=== PATIENT | male | born 1930 | race Caucasian/White ===

== ENCOUNTER 2017-08-03 14:45 | Inpatient (IN) ==
--- OUTSIDE RECORDS SUMMARY | 2017-08-03 14:54 | External Medical Summary ---
:1930 Author Organization [facility]. Summary purpose CCDA Sent to [facility] Chief Complaint and Reason for Visit Admit Diagnosis 1 hip pain Problem list No authorized problems tracked for continuity of care are available for this visit. Encounters No authorized problems tracked for encounter diagnoses are available for this visit. Medications No medications recorded for this patient visit Allergies, adverse reactions, alerts Allergen Category Ingredient Status Reaction Severity Onset glimepiride Drug glimepiride Active No Known Food No Known Food No Known Food Active Allergy Allergy Allergy Immunizations No immunizations recorded for this patient visit Relevant diagnostic tests and/or laboratory data No authorized results are available for this patient visit History of procedures No procedures recorded for this patient visit. Functional status No functional or cognitive status observations are available for this visit. Vital signs No authorized vital signs are available for this visit. Social history No Social History or smoking status observations were recorded for this visit. ( Unknown if ever smoked.) Treatment Plan No treatment plan text is available for this visit. Hospital discharge instructions No discharge instruction text is available for this visit.
[2017-08-03] MEDS ORDERED: TRAMADOL 50 MG TABLET PO PRN (14:57)
[2017-08-03] MEDS ORDERED: ACETAMINOPHEN 500 MG TABLET PO PRN (14:57)
[2017-08-03] MEDS ORDERED: BISACODYL 10 MG SUPPOSITORY RECTALLY PRN (14:57)
--- NOTE | 2017-08-03 15:17 | IRU History & Physical Report ---
HPI U Date: Date: 08/03/17 Time: 1509 Chief complaint: My hip hurts HPI: Mr. Danielle is an 87-year-old male who is referred by Dr. Danny Carney. His primary care physician is Dr. Delia De Leon. He reports that he was stepping out of his car which is SUV on 07/30/2017. He missed the runner board and thought the ground was higher. As soon as his foot hit the ground he felt discomfort in the left hip. He did fall to the ground but did not have any known head injury at that time. He states that he recalls almost the entire event and does not believe that he had any loss of consciousness. He went to the emergency department in [place]. Initial x-ray was negative. He continued to have discomfort in the hip and for that reason on the morning of since the pain was worse he had a CT scan of the hip performed demonstrating a fracture. He was transferred to [facility] for admission on 07/31/2017 to the hospitalist service and the care of Dr. Carney. He was seen by Dr. Guthrie. The CT scan demonstrated a nondisplaced left femoral neck fracture. Patient was stabilized medically and was taken to surgery by Dr. Guthrie on 07/31/2017 for a cannulated screw fixation of the left femoral neck fracture. He tolerated the procedure well. Prior to this episode, the patient was independent functionally. He lives at home with his in [place]. They live in their own home. He has 2 steps to get into his home. He has a walker at home which his was used in the past but he does not use any assistive devices. Interestingly, the patient states that he has fallen numerous times but has never hurt himself. Since the surgery he has had increasing oxygen requirements. The patient does have history of chronic objective pulmonary disease. He uses his albuterol nebulizer daily from fall through winter and then stopped using it in the spring and summer. He uses oxygen at home at the rate of 2 L/m when he is in the house. He does have chronic dyspnea with activity. He denies any cough nor sputum. He denies any chest pain. Since the surgery he has had oxygen saturations as low as 60% with activity. He is able to oxygenate adequately otherwise when he is at rest. In addition, the initial chest x-ray was negative for acute process. Follow-up film has shown some airspace density in the right lower lobe. Etiology of this is not clear. The patient also has history of diabetes mellitus. He has been on oral agents only. He knows one of them is metformin but does not know the name of the other one. He checks his sugars 4 times daily. Average fasting blood sugar is around 79. Last known A1c was 7.2% in June. Patient does have history of cardiac workup in the past. As early as I can determine, this was precipitated by a TIA which was characterized by some left- sided weakness lasting for less than 24 hours. He was evaluated and was felt by Dr. Chatman. Mention is made of atrial fibrillation in the chart although the patient does not recognize this term. He states he has never been on warfarin nor any blood thinners. He was found to have carotid artery stenosis on the right and underwent endarterectomy about 4 or [address] Atkinson. Has had no further neurologic symptoms since that time. According to the hospital record , echocardiogram in 2008 demonstrated ejection fraction of 71%. Had trace tricuspid regurgitation. He did have a nuclear stress test in 2009 apparently demonstrating no acute findings. Patient's prior level of functioning is as follows: He was independent in all aspects tested. Patient's current level of functioning is as follows: Eating is supervision level. He requires maximum assistance for grooming, moderate assistance for upper body dressing and total assistance for lower body dressing. He requires maximum assistance for toileting, minimum assistance for bed/chair/wheelchair transfers and toilet transfers. He requires total assistance for walking with a rolling walker 12 feet. He does demonstrate poor safety and balance with functional transfers and ambulation. He did demonstrate one minor loss of balance requiring minimal assistance from therapist for correction. The following medical conditions are noted and require active monitoring and/or management: 1. Hypoxemia and history of COPD. He does use oxygen at home but is requirements appear to be greater here. He is at risk for further hypoxemia. His chest radiograph is abnormal demonstrating some right lower lobe airspace density of uncertain cause. This will be monitored carefully. 2. History of atrial fibrillation. He has had some tachycardia here and recently required some diltiazem. He was recently started on digoxin. He is at risk for further cardiac arrhythmias, lightheadedness etc. 3. Diabetes mellitus type II on oral agents only. He is at risk for hyperglycemia or hypoglycemia in view of the increased work demands involved with rehabilitation. The following therapies will be needed: 1. Physical therapy: for transfers and ambulation and stairs. 2. Occupational therapy: for ADL's and transfers. 3. Dietitian: In view of his diabetes mellitus 4. Medical management: for the above conditions. 5. 24 hour Rehabilitation Nursing to monitor and address the following: Close monitoring of blood sugars, assessment of wound progress to ensure no evidence of wound infection, monitoring of oxygen saturations and to reduce fall risk. [facility] Patient Stated Medical History 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 ago TIA) Cataracts Yes: bilateral removed/has lens Hearing Loss Yes Macular Degeneration Yes: bilateral Cardiac Arrhythmia Yes: history of tachycardia-previously on med for this Chronic Obstructive Pulmonary Yes: SOB, 02 at home, RT to assess and give Disease (COPD) treatment Sleep Apnea No Diabetes Mellitus Type 2 Yes: avg bs at home 110, bs today 112 Other Yes: prostate cancer/biopsies Other Musculoskeletal Yes: TIA 5 yrs ago, right sided weakness, left carotid endardectomy Medical History Updates: He reports history of prostate biopsy and is unclear if this demonstrated cancer. At one he stated it did but other information in the chart indicates that it was a benign biopsy. He states that he was reassessed every 3 months for a while but no treatment was given. Has seen Dr. Jim for this in the past. Surgical History: EGD in 1989. Echo 2008: EF 71%, trace tricuspid regurgitation. Nuclear stress test 2008: EF 65%, negative for MD. Right CEA 2013, Dr. Atkinson. Prostate biopsy 2001 (benign). Hernia repair x 2 (umbilical and left inguinal), 1998 Family History: Patient's parents are both . Father of a stroke at age 73. Mother also had of CVA age 69. He has lost 3 siblings from malignancy, thyroid cervical and prostate cancer. Another brother has prostate cancer. Another brother at a young age. - Social History Smoking status: Former smoker Packs per day: 0.5 (smoked from age 19 through age 62) Substance use type: does not use Alcohol intake: former (direct occasional beer in the past.) Alcohol intake frequency: does not drink Housing: house Household members: spouse Current occupational status: retired Current residence: Apartment/Private Home Social history: The patient is a retired redd. He lives with his in their own home. He was functionally independent prior to his fall. Review of Systems - Constitutional Constitutional: Absent: anorexia, chills, fatigue, fever(s), headache(s), lethargy, malaise, night sweats, weakness, weight gain, weight loss - EENMT Eyes: Absent: blurry vision, change in vision, diplopia Mouth/Throat: Absent: changes in swallowing, painful swallowing, change in taste , bleeding gums, change in voice - Cardiovascular Cardiovascular: Absent: chest pain, palpitations, syncope, dyspnea on exertion, orthopnea, edema, cyanosis, heart murmur Rhythm: Present: regular rhythm Vascular: Absent: intermittent claudication, pedal edema, unilateral swelling - Respiratory Respiratory: Absent: cough, dyspnea, hemoptysis, dyspnea on exertion, wheezing, pain on inspiration, chest congestion, excessive phlegm production - Gastrointestinal Gastrointestinal: Absent: abdominal pain, change in bowel habits, constipation, diarrhea, dyspepsia, dysphagia, early satiety, hematochezia, melena, nausea, vomiting - Musculoskeletal Musculoskeletal: Present: myalgias. Absent: abnormal gait, arthralgias, back pain, joint swelling, limited range of motion, muscle weakness - Integumentary/Breasts Integumentary: Absent: alopecia, erythema, lesions, pruritus, rash, jaundice - Neurological Neurological: Absent: abnormal gait, abnormal movements, abnormal speech, confusion, convulsions, dizziness, focal weakness, frequent falls, headache(s), loss of vision, memory loss, numbness, paresthesias, tremor(s) - Psychiatric Psychiatric: Absent: abnormal sleep pattern, anxiety, depression - Endocrine Endocrine: Absent: cold intolerance, flushing, heat intolerance, palpitations - Hematologic/Lymphatic Hematologic/Lymphatic: Absent: easy bleeding, easy bruising, lymphadenopathy - Allergic/Immunologic Allergic/Immunologic: Absent: urticaria Medications Home Medications Medication Instructions Recorded Confirmed Type Advair 500-50Diskus 2 inhaler PO DAILY 07/31/17 07/31/17 History Albuterol HFA Inhaler [Ventolin 2 inhaler PO PRN PRN 07/31/17 07/31/17 History Hfa 90 mcg/actuation] Albuterol/Ipratropium [Duoneb] 1 unit AEROSOL Q4H PRN 07/31/17 07/31/17 History Atorvastatin [Lipitor] 1 tab PO HS 07/31/17 07/31/17 History GlipiZIDE [Glucotrol] 1 tab PO DAILY 07/31/17 07/31/17 History Metformin [Glucophage] 500 mg PO BIDWM 07/31/17 07/31/17 History Multivitamin [One Daily] 1 tab PO DAILY 07/31/17 07/31/17 History Vit A/C/E AC/Znox/Cupric Oxide 1 tab PO DAILY 07/31/17 07/31/17 History [Eye Vitamin-Minerals Tablet] dilTIAZem HCl [Diltiazem 24Hr ER] 1 tab PO DAILY 07/31/17 07/31/17 History Allergies Allergy/AdvReac Type Severity Reaction Status Date / Time No Known Drug Allergies Allergy Verified 08/03/17 15:03 Results IRU - Labs Labs: Have reviewed chart information including review of chest radiograph from acute care. Exam - Constitutional Present: no acute distress, well nourished, well developed, average body habitus , cooperative Comments: Hard of hearing - Routine HEENT Exam Head: Present: normocephalic, atraumatic. Absent: cushingoid faces, abrasion, laceration, hematoma Eye: Present: EOMI, PERRL. Absent: conjunctival icterus, scleral injection, periorbital swelling, nystagmus ENT: Present: mucous membranes moist, oropharynx clear Comments: Pupils are small. Bilateral arcus senilis noted. Sclerae are clear. - Routine Neck Exam Present: supple, full ROM, trachea midline. Absent: lymphadenopathy, thyromegaly, tenderness, swelling - Routine Chest/Breast/Axilla Exam Chest wall: Absent: tenderness, mass Axillae: Absent: lymphadenopathy, mass - Routine Respiratory Exam Present: decreased breath sounds, prolonged expiratory phase, wheezes (a few expiratory wheezes noted bilaterally.). Absent: accessory muscle use, rales, respiratory distress, rhonchi, stridor, crackles, distant breath sounds - Routine Cardiovascular Exam Present: RRR, S1, S2, no murmur. Absent: gallop, S3, S4, click, irregular rhythm - Routine Abdominal Exam Present: soft, normoactive bowel sounds, non distended, non tender. Absent: rebound, guarding, firm, rigid, organomegaly, mass, hernia, wound - Routine Extremities Exam Present: no edema, non tender, pulses intact, normal capillary refill. Absent: cyanosis, clubbing - Routine Back/Spine/Pelvis Exam Back/Spine: Present: full ROM. Absent: scoliosis, kyphosis - Routine Skin Exam Present: intact, dry, warm. Absent: cyanosis, erythema, pallor, mottling, petechiae, urticaria, lesions, jaundice - Routine Neurological Exam Present: alert, oriented X3, CN II-XII intact, moving all extremities, normal speech - Routine Psychiatric Exam Present: normal affect, normal thought process, cooperative, good insight, good judgment. Absent: depressed, anxious Sepsis Assessment - Evaluation Severe Sepsis: none seen IRU A/P (1) Fracture of femoral neck, left Qualifiers: Encounter type: initial encounter Fracture type: closed Qualified Code(s) : S72.002A - Fracture of unspecified part of neck of left femur, initial encounter for closed fracture Current visit: No Status: Acute Patient continues to experience significant pain upon first standing. He is status post repair of the hip fracture. (2) Tachycardia Current visit: Yes Status: Acute Patient episode of tachycardia requiring diltiazem while on acute care. Has a history of reported atrial fibrillation although he does not recall that term. Ejection fraction has been recorded as normal. (3) Diabetes mellitus type 2 in nonobese Current visit: Yes Status: Chronic Has a history of diabetes mellitus type 2 on oral agents only (without residential use of insulin). He is at risk for hyperglycemia or hypoglycemia in view of his variable energy expenditure requirements in rehabilitation. (4) 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 Qualified Code(s): J43.9 - Emphysema, unspecified Current visit: Yes Status: Chronic Patient does use a nebulizer with albuterol at home once daily. Currently does not have a cough or sputum but does have dyspnea with activity. In addition, his chest radiograph is abnormal, and this will require close monitoring to observe for development of pulmonary infection or worsening respiratory failure. (5) Acute on chronic respiratory failure with hypoxemia Current visit: Yes Status: Acute Patient does use oxygen at home. However his requirements are increased here with recent report of saturations down into the 60s and 70s even while on oxygen. He is at risk for further hypoxemic respiratory failure and will require close monitoring of his pulmonary status. (6) Status post-operative repair of closed fracture of left hip Current visit: Yes Status: Acute DVT Prophylaxis: SCD's, Lovenox Resuscitation Status: Full Code - Course Hospital Course: Carl Rowley MD: - Interventions to Obtain Goals PT Treatment Plan: Balance/Proprioception, Functional Activities, Gait Training , Patient/Family Education OT Treatment Plan: ADL (Basic Care), Balance Training, IADL, Pt./Family Education Goals Progress/Modifications: The patient will require a multidisciplinary approach with involvement of team members including occupational therapy, physical therapy, 24 hour rehabilitation nursing to monitor and treat hyperglycemia or hypoglycemia. He requires medical supervision of these areas as well. He does have acute on chronic hypoxemic respiratory failure as evidenced by increased oxygen demands compared to his baseline.
--- NOTE | 2017-08-03 15:34 | IRU 24Hr Post Admit Eval ---
24 Hr Post Admission Physical - Relevant Changes Relevant Changes: No Reviewed: I have reviewed the patient's information and concur with the finding and results of the pre-admission screen. Certification: I certify the patient for rehabilitation. - Patient Condition (1) Fracture of femoral neck, left Status: Acute Qualifiers: Encounter type: initial encounter Fracture type: closed Qualified Code(s) : S72.002A - Fracture of unspecified part of neck of left femur, initial encounter for closed fracture Code(s): S72.002A - Fracture of unspecified part of neck of left femur, initial encounter for closed fracture Classification: IRF Tx That Should Address Diagnosis, Diagnosis Requiring Medical Follow Up (2) Tachycardia Status: Acute Code(s): R00.0 - Tachycardia, unspecified Classification: IRF Tx That Should Address Diagnosis, Diagnosis Requiring Medical Follow Up (3) Diabetes mellitus type 2 in nonobese Status: Chronic Code(s): E11.9 - Type 2 diabetes mellitus without complications Classification: Present on IRF Admission, IRF Tx That Should Address Diagnosis, Diagnosis Requiring Medical Follow Up (4) COPD (chronic obstructive pulmonary disease) Status: Chronic Qualifiers: COPD type: emphysema Emphysema type: unspecified Qualified Code(s): J43.9 - Emphysema, unspecified Code(s): J44.9 - Chronic obstructive pulmonary disease, unspecified Classification: Present on IRF Admission, IRF Tx That Should Address Diagnosis, Diagnosis Requiring Medical Follow Up (5) Acute on chronic respiratory failure with hypoxemia Status: Acute Code(s): J96.21 - Acute and chronic respiratory failure with hypoxia Classification: Present on IRF Admission, IRF Tx That Should Address Diagnosis, Diagnosis Requiring Medical Follow Up (6) Status post-operative repair of closed fracture of left hip Status: Acute Code(s): Z98.890 - Other specified postprocedural states; Z87.81 - Personal history of (healed) traumatic fracture Classification: Present on IRF Admission, IRF Tx That Should Address Diagnosis, Diagnosis Requiring Medical Follow Up - Prior Functional Status Lives With: Spouse Residence Type: Apartment/Private Home Assitive Devices: None Prior Functional Status: Indep. at home or school - Current Functional Status Current Level of Function: Patient's current level of functioning is as follows: Eating is supervision level. He requires maximum assistance for grooming, moderate assistance for upper body dressing and total assistance for lower body dressing. He requires maximum assistance for toileting, minimum assistance for bed/chair/wheelchair transfers and toilet transfers. He requires total assistance for walking with a rolling walker 12 feet. He does demonstrate poor safety and balance with functional transfers and ambulation. He did demonstrate one minor loss of balance requiring minimal assistance from therapist for correction. Failed Alternative Therapy: Arrived from Acute Care Patient Requirements: The patient requires oversight by rehabilitation physician to manage their rehabilitation treatment plan and multidisciplinary approach to care that can only be provided in an IRF and requires a multidisciplinary approach to care, provided by professional PTs, OTs, STs, dieticians, RTs, rehabilitation nurses and is not available in lesser levels of care. Limitations Req: Mobility Impairment, ADL Impairment, Limited Mobility, Respiratory Impairment Physical Therapy Minutes: 90 Occupational Therapy Minutes: 90 Therapy: The patient is to receive therapy at least 5 days a week. - Complications/Comorbidities Impact on Functional Outcomes: Patient's pain level as well as his hypoxemic respiratory failure with chronic dyspnea with activity may negatively impact his functional outcome. Barriers to Discharge: Weakness, Endurance, Pain Control, Medical Limitation - Plan to Avoid Complications Plan to Avoid Complications: The patient cannot receive this care in a lesser intensive setting such as Long Term or Outpatient Therapy due to the patient requiring the following : The patient requires close 24 rehabilitation nursing monitoring of his blood sugars as well as his cardiac status in view of recent tachycardia. He requires a multidisciplinary approach with intensive OT and PT at least 3 hours daily to allow him to return to his previous level of functioning. Finally, he requires close monitoring of his pulmonary status in view of his recent hypoxemic respiratory failure superimposed upon his chronic respiratory failure.
[2017-08-03 15:53] VITALS: BMI 24.4
[2017-08-03] MEDS: ALBUTEROL/IPRATROPIUM 2.5mg-0.5mg/3ml NEB AEROSOL SCH ×2 (16:45→20:31)
[2017-08-03] MEDS: METFORMIN 500 MG TABLET PO SCH (17:59)
[2017-08-03] MEDS: HYDROCODONE/APAP 5mg/325mg TABLET PO PRN (18:00)
[2017-08-03] MEDS: ATORVASTATIN 40 MG TABLET PO SCH (20:03)
[2017-08-03] MEDS: CALCIUM 600 + VIT D 400 TABLET PO SCH (20:03)
[2017-08-03] MEDS: SENNA + DOCUSATE TABLET PO SCH (20:05)
[2017-08-03] MEDS: INSULIN ASPART 100unit/ml INJECTION SQ PRN (20:17)
[2017-08-04] MEDS: ALBUTEROL/IPRATROPIUM 2.5mg-0.5mg/3ml NEB AEROSOL SCH ×4 (05:21→19:26)
[2017-08-04] MEDS ORDERED: SYSTANE EYE DROPS 0.7ml EACH EYE PRN (08:05)
--- NOTE | 2017-08-04 08:24 | Consult Note ---
Consult Information - Data of Consult Consult date: 08/04/17 Requesting Physician: Carl Rowley MD Primary Care Provider: Claudine Sandhu MD Family Provider: Claudine Sandhu MD - Consult Narrative Reason for consult: tachycardia & COPD History of present illness: Tino Danielle is an 87 year old male who injured his left hip in the evening of . He stepped out of an SUV, and missed the runnerboard. He thought the ground was higher and as soon as his foot hit the ground he felt pain in his left hip. He went down to the ground and has some bruising to his left hand, but otherwise denies striking his head or injuring anything else. He presented to the ED in [place], and initial x-ray was negative. He had the option to stay in the hospital, but elected to go home. He's been up and "hobbling" on his legs, though has kept this to a minimum due to discomfort. In the morning of 07/31/17, his pain was worse, and he went back to the hospital where a CT scan of his hip confirmed a fracture. Arrangements were made for transfer to [facility] for definitive care. He underwent screw fixation on 07/31/[address] Guthrie. Postop, he required 1-2 liters of oxygen to maintain saturations. He uses oxygen at home on a PRN basis. Verduzco catheter was inserted by was discontinued without incident on 08/03/17. Mild postop anemia was noted but transfusion was not warranted. He received Lasix IV x1 for concern for fluid overload. He also was given IV diltiazem for tachycardia. Both of these concerns improved and he was medically stable for transfer to IRU on 08/03/17. Mr. Danielle was seen in the morning of 08/04/[address] Rowley. He reported that his pain is improving and he's already getting stronger. He denies feeling short of breath, especially when oxygen is used. He is having watery stools, even each time with flatus. He denies cramping or distention. His appetite has been good without n/v. He denies fevers/chills/sweating. No chest pain or palpitations, weakness or dizziness. He's been able to void without incident since the catheter was removed, though was up twice last night to void. He denies incisional pain/drainage. He is motivated and hopeful for discharge home soon. PFSH COPD A-fib PVD History of TIA DM2, noninsulin dependent Prostate cancer history Surgical History: EGD in 1989. Echo 2008: EF 71%, trace tricuspid regurgitation. Nuclear stress test 2008: EF 65%, negative for IA. CEA 09/2013, Dr. Atkinson. Prostate biopsy 2001 (benign). Hernia repair x 2 (umbilical and left inguinal), 1998. Left hip screw fixation 07/31/17, Dr. Guthrie Family History: Mother at age 69 of a stroke. Father at age 73 of a stroke. Tino is 1 of 15 siblings. 3 from cancer - thyroid, cervical, and prostate cancer. Another brother with prostate cancer. Another brother drowned at a young age. - Social History Smoking status: Former smoker Packs per day: 1 Quit date: 08/17/1958 Substance use type: does not use Alcohol intake frequency: does not drink Household members: spouse (Carol) Current occupational status: retired Previous occupational history: [employer] Current residence: Apartment/Private Home Review of Systems All systems PM: 10-point ROS was reviewed, no additional remarkable complaints except - Constitutional Constitutional: Present: as per HPI - EENMT Eyes: Absent: change in vision Balance: Absent: vertigo Nose: Absent: obstruction Mouth/Throat: Absent: sore throat - Cardiovascular Cardiovascular: Present: as per HPI Vascular: Absent: pedal edema, unilateral swelling - Respiratory Respiratory: Present: as per HPI - Gastrointestinal Gastrointestinal: Present: as per HPI - Genitourinary Genitourinary: Present: as per HPI - Musculoskeletal Musculoskeletal: Present: as per HPI - Integumentary/Breasts Integumentary: Present: as per HPI - Neurological Neurological: Present: as per HPI - Psychiatric Psychiatric: Absent: anxiety - Endocrine Endocrine: Present: as per HPI - Hematologic/Lymphatic Hematologic/Lymphatic: Absent: easy bleeding Medications Home Medications Medication Instructions Recorded Confirmed Type Advair 500-50Diskus 2 inhaler PO DAILY 07/31/17 07/31/17 History Albuterol HFA Inhaler [Ventolin 2 inhaler PO PRN PRN 07/31/17 07/31/17 History Hfa 90 mcg/actuation] Albuterol/Ipratropium [Duoneb] 1 unit AEROSOL Q4H PRN 07/31/17 07/31/17 History Atorvastatin [Lipitor] 1 tab PO HS 07/31/17 07/31/17 History GlipiZIDE [Glucotrol] 1 tab PO DAILY 07/31/17 07/31/17 History Metformin [Glucophage] 500 mg PO BIDWM 07/31/17 07/31/17 History Multivitamin [One Daily] 1 tab PO DAILY 07/31/17 07/31/17 History Vit A/C/E AC/Znox/Cupric Oxide 1 tab PO DAILY 07/31/17 07/31/17 History [Eye Vitamin-Minerals Tablet] dilTIAZem HCl [Diltiazem 24Hr ER] 1 tab PO DAILY 07/31/17 07/31/17 History Allergies Allergy/AdvReac Type Severity Reaction Status Date / Time No Known Drug Allergies Allergy Verified 08/03/17 15:03 Exam Vital Signs: Temperature 97.9 F 08/04/17 07:55 Pulse Rate 95 08/04/17 07:55 Respiratory Rate 18 08/04/17 07:55 Blood Pressure 134/67 08/04/17 07:55 Pulse Oximetry 94 08/04/17 07:55 Height/Weight/BMI: Height 1.8 m Weight 79.4 kg Body Mass Index 24.4 - Constitutional Present: no acute distress, well nourished, well developed, thin - Routine HEENT Exam Head: Present: normocephalic Eye: Present: PERRL. Absent: conjunctival icterus, scleral injection ENT: Present: mucous membranes moist, oropharynx clear - Routine Neck Exam Present: supple - Routine Respiratory Exam Present: decreased breath sounds (mildly decreased breath sounds throughout), crackles (faint crackles both bases) - Routine Cardiovascular Exam Present: RRR, S1, S2 - Routine Abdominal Exam Present: non tender, distended. Absent: normoactive bowel sounds (high pitched and hyperactive) - Routine Extremities Exam Present: no edema, pulses intact, normal capillary refill - Routine Skin Exam Present: dry, warm, wounds (dressings to left hip/thigh c/d/i) - Routine Neurological Exam Present: alert, oriented X3, CN II-XII intact, moving all extremities, normal speech. Absent: facial asymmetry - Routine Psychiatric Exam Present: normal affect, normal thought process, cooperative Results - Labs CBC & Chem 7: 08/04/17 04:26 08/04/17 04:26 Assessment and Plan (1) Fracture of femoral neck, left Current visit: No Status: Acute Assessment and Plan: Assessment Closed, minimally displaced left subcapital femoral neck fracture s/p screw fixation 07/31/17 Mild ABLA COPD A-fib PVD History of TIA DM2, noninsulin dependent - well controlled (A1c 7.2%, 07/13/17) Prostate cancer history Plan Agree with PT/OT & pain mgt per attending. Pt had a brief period of confusion early this morning but was easily reoriented - monitor closely; do not perceive need for antipsychotics. Check KUB d/t abdominal distention, diarrhea, and high pitched hyperactive bowel sounds. If neg, reduce frequency of Senna Plus. Wean oxygen as able; he does use oxygen on a PRN basis at home. Continue DuoNeb treatments. Monitor blood glucose & continue metformin & glipizide. Mild decrease in hgb without need for transfusion. Hgb stable at 12.9. Recheck CBC in a couple days. Hx tachycardia and paroxysmal a-fib - digoxin was started on acute side; recheck dig level on 08/06/17. HR is in the 90s currently. Continue diltiazem. Lovenox x 30 days postop, through 09/03/17. Metabolic w/u pending; f/u with Dr. Agarwal. Thank you for this consultation; we will follow Mr. Danielle along with you during his IRU course. Upon discharge, care will be returned to Dr. Sandhu. DVT Prophylaxis: Lovenox Resuscitation Status: Full Code - Physician Narrative Physician: Danny Carney MD Narrative: Date: 08/04/17 Time: 5 Have independently interviewed and examined pt. Chart reviewed. Case discussed with my CAUL DRESSER. Care plan developed with my supervision; agree with above. Patient admitted from acute medical at [facility] to IRU for restorative therapy following hip fracture. Doing well this afternoon. Had good day of therapy. Pain much decreased-still notes some discomfort, but not limiting at this time. Getting more mobility back to his left hip. Breathing feels okay-note congestion but little cough. Still needing O2. Appetite stable-eating well without nausea or ab pain. Notes slow stools-passing some liquid movement, but not having much output. Denies ab cramping or bloating. Urinating well. Very encouraged about the gains he is making. Lungs: decreased, no distress with O2. CV: irregular AB: soft, distention, BS present MSE: awake alert appropriate Assessment Closed, minimally displaced left subcapital femoral neck fracture s/p screw fixation 07/31/17 Mild ABLA COPD A-fib PVD History of TIA DM2, noninsulin dependent - well controlled (A1c 7.2%, 07/13/17) Prostate cancer history Vitamin D deficiency Plan Agree with admission to IRU to maximize functional status following left hip fracture. Encourage PT/OT to improve abilities. Will increase diltiazem to 300mg to help with HR control. Decrease digoxin to 0.125mg daily -- hope to be able to stop digoxin. Monitor HR and BP with the medication changes. Encourage pulmonary toilet - patient has NOT been using Advair at home do to the cost ( and not seeing much benefit for the expense). Vitamin D level has been reported and is low at 28 - Ca with Vit D started on acute, add additional Vitamin D. Will need to intermittently monitor lab. Medically stable for IRU floor activities. Hospital Course Summary Disclaimer: The visit summary below is not to be considered part of the above Progress Note. Hospital Course: 08/04/17 08:59 Assessment Closed, minimally displaced left subcapital femoral neck fracture s/p screw fixation 07/31/17 Mild ABLA COPD A-fib PVD History of TIA DM2, noninsulin dependent - well controlled (A1c 7.2%, 07/13/17) Prostate cancer history Plan Agree with PT/OT & pain mgt per attending. Pt had a brief period of confusion early this morning but was easily reoriented - monitor closely; do not perceive need for antipsychotics. Check KUB d/t abdominal distention, diarrhea, and high pitched hyperactive bowel sounds. If neg, reduce frequency of Senna Plus. Wean oxygen as able; he does use oxygen on a PRN basis at home. Continue DuoNeb treatments. Monitor blood glucose & continue metformin & glipizide. Mild decrease in hgb without need for transfusion. Hgb stable at 12.9. Recheck CBC in a couple days. Hx tachycardia and paroxysmal a-fib - digoxin was started on acute side; recheck dig level on 08/06/17. HR is in the 90s currently. Continue diltiazem. Lovenox x 30 days postop, through 09/03/17. Metabolic w/u pending; f/u with Dr. Agarwal. Thank you for this consultation; we will follow Mr. Danielle along with you during his IRU course. Upon discharge, care will be returned to Dr. Sandhu. Addendum entered and electronically signed by Dorothy Gentile APRN 08/04/17 11: 06: KUB reviewed: ileus, possible early obstruction; significant amount of stool. Start scheduled Dulcolax suppositories QID and repeat KUB on 08/06/17. Recommend serial examinations.
[2017-08-04] MEDS: MULTI-VITAMIN PLAIN TABLET PO SCH (08:41)
[2017-08-04] MEDS: MULTI-VIT + MINERAL (Opti-gen) TABLET PO SCH (08:42)
[2017-08-04] MEDS: CALCIUM 600 + VIT D 400 TABLET PO SCH ×2 (08:42→21:17)
[2017-08-04] MEDS: METFORMIN 500 MG TABLET PO SCH ×2 (08:42→17:42)
[2017-08-04] MEDS: GlipiZIDE 5 MG TABLET PO SCH (08:42)
[2017-08-04] MEDS: SENNA + DOCUSATE TABLET PO SCH ×2 (08:43→21:17)
[2017-08-04] MEDS: ASPIRIN *EC* 81 MG TABLET PO SCH (08:43)
[2017-08-04] MEDS: POLYETHYL GLYCOL 3350 17gm PACKET PO SCH (08:43)
[2017-08-04] MEDS: HYDROCODONE/APAP 5mg/325mg TABLET PO PRN (08:46)
[2017-08-04] MEDS ORDERED: DIGOXIN 250 MCG TABLET PO SCH (09:00)
[2017-08-04] MEDS: ENOXAPARIN 40 MG/0.4 ML INJECTION SQ SCH (10:00)
--- NOTE | 2017-08-04 10:21 | IRU Progress Note ---
- Subjective/Serverity of Illness Date: 08/04/17 Mr. Danielle was evaluated on the inpatient rehabilitation unit. He reports that his pain is quite severe when he first gets up on the leg but as he walks he is improved with regard to pain management. Does have dyspnea with activity. We spent quite a bit of time discussing his oxygen situation. At home he does have a portable concentrator. However he uses the oxygen only when he is inside and resting. In addition he does have an oximeter. Oximeter at home is typically in the 80s when he is up and about and typically above 90 when he is at rest. Here he is using 2 L/m at rest and 4 L/m with activity. I evaluated him after he had been self-propelling in a wheelchair. Saturations were in the 80s-around 84% or so on 4 L. He says that is typical for him. He said therapy and relaxed a bit and after approximately 5-7 minutes it did climb up to above 90% on oxygen. He denies any cough nor sputum. I spent quite a bit of time discussing with him both at that time as well as when his was in the room subsequently that he really needs to use the oxygen 24 hours daily and especially when he is up and about. [place] apparently [place] to the farm and works a bit and at that time does not use any supplemental oxygen. Otherwise she reports no chest pain. He reports no nausea no vomiting. Brief therapy update: He is getting started with both occupational therapy and physical therapy. Assessments have been done. He seems to be cooperative and willing to work with therapy. He would like to get back home. Further information is pending at this time. Update on medical issues we are managing and monitorin. Hypoxemia and history of COPD. He does have a few crackles in the right base. However he denies any cough nor sputum and he is afebrile. Please see above discussion regarding oxygenation levels. 2. History of atrial fibrillation. He has not reported any symptoms of palpitations nor lightheadedness. He is in a regular rhythm at present. 3. Diabetes mellitus type II on oral agents only. Blood sugars are reviewed. They're running over 200 at times. No hypoglycemic episodes noted. Exam Vital Signs: Temperature 97.9 F 08/04/17 07:55 Pulse Rate 98 08/04/17 08:41 Respiratory Rate 18 08/04/17 07:55 Blood Pressure 134/67 08/04/17 07:55 Pulse Oximetry 94 08/04/17 07:55 Height/Weight/BMI: Height 1.8 m Weight 79.4 kg Body Mass Index 24.4 - Constitutional Present: mild distress (dyspneic), well nourished, well developed, average body habitus - Routine HEENT Exam Eye: Present: EOMI ENT: Present: mucous membranes moist, dentition normal - Routine Neck Exam Present: supple, full ROM - Routine Respiratory Exam Present: dyspnea, decreased breath sounds, prolonged expiratory phase, wheezes ( faint expiratory wheezes bilateral bases), crackles (right base) - Routine Cardiovascular Exam Present: RRR, S1, S2. Absent: murmur, S3, S4 - Routine Abdominal Exam Present: soft, normoactive bowel sounds, non distended. Absent: tenderness - Routine Extremities Exam Present: no edema, normal capillary refill. Absent: cyanosis, clubbing - Routine Skin Exam Present: dry, warm, ecchymosis - Routine Neurological Exam Present: alert, oriented X3, CN II-XII intact Very hard of hearing which makes communication difficult at times. - Routine Psychiatric Exam Present: normal affect Results IRU - Labs Labs: Have reviewed labs and other providers notes. IRU A/P (1) Status post-operative repair of closed fracture of left hip Current visit: Yes Status: Acute Patient's pain management appears to be adequate at present. He does have pain when he first stands up on his leg but improving with time. No evidence of infection. (2) Fracture of femoral neck, left Qualifiers: Encounter type: initial encounter Fracture type: closed Qualified Code(s) : S72.002A - Fracture of unspecified part of neck of left femur, initial encounter for closed fracture Current visit: No Status: Acute (3) Tachycardia Current visit: Yes Status: Acute Has not had recurrence of tachycardia to our knowledge. He denies any palpitations or lightheadedness. (4) Diabetes mellitus type 2 in nonobese Current visit: Yes Status: Chronic His blood sugars are variable. Some are over 200. He is on oral agents only. We will continue to monitor and work with the hospitalists in this regard. (5) 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 Qualified Code(s): J43.9 - Emphysema, unspecified Current visit: Yes Status: Chronic He denies any cough or sputum but does have dyspnea with activity. He states it is unchanged from his baseline at home. (6) Acute on chronic respiratory failure with hypoxemia Current visit: Yes Status: Acute Please see above discussion regarding his oxygenation. He tends to run in the 80s on oxygen supplementation with activity. DVT Prophylaxis: Lovenox Resuscitation Status: Full Code - Course Hospital Course: Carl Rowley MD: 08/04/17 10:25 he is cooperative and just getting started with therapy. Denies cough nor sputum. Hypoxemic with activity even on oxygen supplementation. Labs reviewed. - Interventions to Obtain Goals PT Treatment Plan: Balance/Proprioception, Functional Activities, Gait Training , Patient/Family Education, Therapeutic Exercise OT Treatment Plan: ADL (Basic Care), Balance Training, Pt./Family Education, Ther. Exercise for ADL Goals Progress/Modifications: Time spent with patient and on floor reviewing data and documentin min Barriers to dismissal: Dyspnea with activity, pain, endurance Medical decision-making: I reviewed his overall situation and feels though it is safe to continue therapy at this time. It is noted that he does have substantial desaturations with activity. I discussed this with the patient and with his today at length. Apparently he does not use oxygen all the time at home and uses it only when he is at rest or when he feels like he needs to use it. However, indeed he does desaturate with activity and he clearly needs to use this 24 hours daily at home. He does have a home oximeter and I urged him to monitor this with a goal of keeping saturations 90% or greater. With regard to the right lower lobe infiltrate, he does have a few crackles there but certainly he is asymptomatic otherwise. There is no cough and no sputum and he remains afebrile. We will continue therapy and monitor carefully.
--- NOTE | 2017-08-04 11:00 | XRay Report ---
Indication: abd distention; ?ileus PROCEDURE: XR KUB: Encounter: Initial Comparison: None Findings: No gross free air. Large amount of stool throughout the colon. Dilated small bowel loop in the right lower abdomen and pelvis measuring 5.9 cm in diameter. Additional mildly prominent small bowel the left lateral abdomen measuring 3 cm in diameter. Gas is present distally to the level of the rectum. Degenerative changes in the spine. Impression: 1. Findings most compatible with a generalized ileus. Focal ileus or developing small bowel obstruction in the right abdomen cannot be entirely excluded and continued radiographic follow-up is recommended. 2. Significantly increased colonic stool burden. .
[2017-08-04] MEDS ORDERED: ALBUTEROL 2.5mg/3ml (0.083%) NEB AEROSOL PRN (11:27)
[2017-08-04] MEDS: BISACODYL 10 MG SUPPOSITORY RECTALLY SCH ×3 (14:40→21:45)
[2017-08-04] MEDS: ATORVASTATIN 40 MG TABLET PO SCH (21:17)
[2017-08-05] MEDS: ALBUTEROL/IPRATROPIUM 2.5mg-0.5mg/3ml NEB AEROSOL SCH ×4 (04:45→20:44)
[2017-08-05] MEDS: ASPIRIN *EC* 81 MG TABLET PO SCH (08:28)
[2017-08-05] MEDS: GlipiZIDE 5 MG TABLET PO SCH (08:28)
[2017-08-05] MEDS: CALCIUM 600 + VIT D 400 TABLET PO SCH ×2 (08:28→20:49)
[2017-08-05] MEDS: MULTI-VITAMIN PLAIN TABLET PO SCH (08:28)
[2017-08-05] MEDS: MULTI-VIT + MINERAL (Opti-gen) TABLET PO SCH (08:28)
[2017-08-05] MEDS: DIGOXIN 125 MCG TABLET PO SCH (08:29)
[2017-08-05] MEDS: SENNA + DOCUSATE TABLET PO SCH ×2 (08:29→20:49)
[2017-08-05] MEDS: POLYETHYL GLYCOL 3350 17gm PACKET PO SCH (08:32)
[2017-08-05] MEDS: METFORMIN 500 MG TABLET PO SCH ×2 (08:35→17:26)
[2017-08-05] MEDS: BISACODYL 10 MG SUPPOSITORY RECTALLY SCH ×4 (09:37→21:49)
[2017-08-05] MEDS: ENOXAPARIN 40 MG/0.4 ML INJECTION SQ SCH (09:37)
[2017-08-05] MEDS: HYDROCODONE/APAP 5mg/325mg TABLET PO PRN (10:15)
--- NOTE | 2017-08-05 10:53 | IRU Progress Note ---
- Subjective/Serverity of Illness Date: 08/05/17 Mr. Danielle was evaluated in his room on the inpatient rehabilitation unit. He complains of difficulty with stools. Last bowel movement was about a week ago he states. He then modified that indicate he had one about 5 days ago after laxative or suppository had been given. Right now he is having some liquid output although in small quantities. He is fearful of having an accident. He is reluctant to participate in therapy because he states if he needs to have a bowel movement he needs to have one immediately. I did review his medications. He is on daily MiraLAX as well as senna as well as milk of magnesia as needed. I suggested an enema and we will add that. It is noted he is on diltiazem as well as the hydrocodone both of which may lead to slow transit constipation. Otherwise he continues to have dyspnea with activity. Does have a mild cough without sputum. However it is not ongoing and he only told me about after I asked him. He denies any chest pains. Brief therapy update: For occupational therapy he is displaying poor balance. Requires minimum assistance for bed/chair/wheelchair transfers. Has refused assessment of toileting assistance and toilet transfer assistance. He does fairly well after receiving education. He is seeing physical therapy as well. He is standby assist for bed/chair/wheelchair transfers. He is ambulating 54 feet with standby assistance with a front-wheeled walker. However his exercise tolerance is poor related to his dyspnea. Update on medical issues we are actively managing or monitorin. Hypoxemia and history of COPD. today his lungs sound reasonably clear with diminished breath sounds. Does report a cough after I asked him but no sputum. Remains afebrile. Saturations at rest are adequate but with activity drop. 2. History of atrial fibrillation. I auscultation he is in a regular rhythm at present. 3. Diabetes mellitus type II on oral agents only. Remains on oral agents. Fingerstick blood sugars running a bit high. Per hospitalist service. Exam Vital Signs: Temperature 97.4 F 08/05/17 08:29 Pulse Rate 96 08/05/17 08:29 Respiratory Rate 22 08/05/17 09:50 Blood Pressure 152/73 H 08/05/17 08:29 Pulse Oximetry 94 08/05/17 08:29 Height/Weight/BMI: Height 1.8 m Weight 79.4 kg Body Mass Index 24.4 - Constitutional Present: mild distress (he is concerned about his bowels at the present time.), well nourished, well developed, cooperative - Routine HEENT Exam Eye: Present: EOMI ENT: Present: mucous membranes moist, dentition normal - Routine Neck Exam Present: supple - Routine Respiratory Exam Present: dyspnea, decreased breath sounds, prolonged expiratory phase. Absent: rhonchi, wheezes, crackles - Routine Cardiovascular Exam Present: RRR, S1, S2. Absent: murmur - Routine Abdominal Exam Present: soft, normoactive bowel sounds, non distended. Absent: tenderness Comments: Abdominal exam is benign. He is nontender. Appears to be nondistended. - Routine Extremities Exam Present: no edema Comments: Left lower extremity examined. Has an area of ecchymosis around the wound. No active inflammation or infection is noted. Results IRU - Labs Labs: I reviewed his lab. IRU A/P (1) Status post-operative repair of closed fracture of left hip Current visit: Yes Status: Acute Pain management appears to be adequate. However his pain pills likely are interfering with his slow transit constipation. Has poor exercise tolerance related to his underlying hypoxemia and COPD. (2) Fracture of femoral neck, left Qualifiers: Encounter type: initial encounter Fracture type: closed Qualified Code(s) : S72.002A - Fracture of unspecified part of neck of left femur, initial encounter for closed fracture Current visit: No Status: Acute (3) Tachycardia Current visit: Yes Status: Acute No clinical evidence of recurrence of his tachycardia at present. (4) Diabetes mellitus type 2 in nonobese Current visit: Yes Status: Chronic Blood sugars are running around 200. Per hospitalist service. He is on oral agents. (5) 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 Qualified Code(s): J43.9 - Emphysema, unspecified Current visit: Yes Status: Chronic (6) Acute on chronic respiratory failure with hypoxemia Current visit: Yes Status: Acute Patient continues to require supplemental oxygen. At rest his saturations are adequate but tend to drop with activity. Apparently this is "normal" for him at home. (7) Slow transit constipation Current visit: Yes Status: Acute Continues to have difficulty with his bowels. He is having some small liquid output. He is on a lot of agents orally. We will try a fleets enema per request. DVT Prophylaxis: Lovenox Resuscitation Status: Full Code - Course Hospital Course: Carl Rowley MD: 08/04/17 10:25 he is cooperative and just getting started with therapy. Denies cough nor sputum. Hypoxemic with activity even on oxygen supplementation. Labs reviewed. 08/05/17 10:56 He is cooperative with therapy although reluctant to participate today due to constipation. Exercise related hypoxemia noted. Dyspnea and pulmonary status limits progress. He has poor exercise tolerance secondary to this. Constipation noted. We'll add fleets enema. - Interventions to Obtain Goals PT Treatment Plan: Balance/Proprioception, Functional Activities, Gait Training , Patient/Family Education, Therapeutic Exercise OT Treatment Plan: ADL (Basic Care), Balance Training, Pt./Family Education, Ther. Exercise for ADL Goals Progress/Modifications: Time spent with patient and on floor reviewing data and documentin min Barriers to dismissal: Endurance, balance, dyspnea, hypoxia Medical decision-making: Patient has significant underlying pulmonary disease in all likelihood. He does have desaturation with activity. His exercise tolerance is reduced related to his pulmonary status. Nevertheless I feel it is safe to proceed with therapy at present to allow him to return to his home. Secondly, he is focused on his bowels at the present time. He is on a number of oral agents. Has also used suppositories. We will try a fleets enema.
[2017-08-05] MEDS: FLEET PHOSPHO - SODA ENEMA 133ml PR PRN (11:41)
--- NOTE | 2017-08-05 13:11 | IRU Team Meeting ---
IRU Team Meeting - Nursing Bladder Assistive Devices Utilized:: Absorbent Pad Bladder Management Level of Assist: Modified Independent Vital Signs: Vital Signs - 24 hr 08/04/17 14:45 08/04/17 16:00 08/04/17 19:26 Temperature 97.7 F Pulse Rate 82 Respiratory Rate 16 16 16 Blood Pressure 140/60 H Pulse Oximetry 96 92 08/04/17 22:46 08/05/17 04:45 08/05/17 08:29 Temperature 98.1 F 97.4 F Pulse Rate 72 96 Respiratory Rate 18 16 18 Blood Pressure 155/69 H 152/73 H Pulse Oximetry 96 93 94 08/05/17 09:50 08/05/17 12:00 Temperature Pulse Rate Respiratory Rate 22 22 Blood Pressure Pulse Oximetry 99 Current Medications: Acetaminophen (Tylenol) 500 mg PO Q5H PRN PRN Reason: Discomfort Hydrocodone Bitart/Acetaminophen ([place]ala 5/325) 1 tab PO Q4H PRN PRN Reason: Pain Last Admin: 08/05/17 10:15 Dose: 1 tab Albuterol Sulfate (Proventil Neb (0.083%)) 3 mg AEROSOL Q4H PRN Albuterol/Ipratropium (Duoneb) 3 ml AEROSOL RTQID [facility] Last Admin: 08/05/17 12:00 Dose: 3 ml Aspirin (Ecotrin) 81 mg PO DAILY [facility] Last Admin: 08/05/17 08:28 Dose: 81 mg Atorvastatin Calcium (Lipitor) 40 mg PO HS [facility] Last Admin: 08/04/17 21:17 Dose: 40 mg Bisacodyl (Dulcolax) 10 mg RECTALLY DAILY PRN PRN Reason: Constipation Bisacodyl (Dulcolax) 10 mg RECTALLY QID [facility] Last Admin: 08/05/17 09:37 Dose: 10 mg Calcium/Vitamin D (Caltrate + D) 1 tab PO BID [facility] Last Admin: 08/05/17 08:28 Dose: 1 tab Cholecalciferol (Vit. D-3) 2,000 unit PO DAILY [facility] Last Admin: 08/05/17 08:29 Dose: 2,000 unit Digoxin (Lanoxin) 125 mcg PO DAILY [facility] Last Admin: 08/05/17 08:29 Dose: 125 mcg Diltiazem HCl (Cardizem Cd) 300 mg PO DAILY [facility] Last Admin: 08/05/17 08:28 Dose: 300 mg Enoxaparin Sodium (Lovenox) 40 mg SQ DAILY [facility] Last Admin: 08/05/17 09:37 Dose: 40 mg Glipizide (Glucotrol) 5 mg PO 0730 [facility] Last Admin: 08/05/17 08:28 Dose: 5 mg Insulin Aspart (Novolog) 2 - 8 unit SQ SS PRN; Protocol PRN Reason: Hyperglycemia Last Admin: 08/03/17 20:17 Dose: 3 unit Magnesium Hydroxide (Mom) 30 ml PO DAILY PRN PRN Reason: Constipation Metformin HCl (Glucophage) 500 mg PO BIDWM [facility] Last Admin: 08/05/17 08:35 Dose: 500 mg Multivitamins (Theragran) 1 tab PO DAILY [facility] Last Admin: 08/05/17 08:28 Dose: 1 tab Multivitamins/Minerals (Vision) 1 tab PO DAILY [facility] Last Admin: 08/05/17 08:28 Dose: 1 tab Polyethyl Glycol/Propylene Glycol (Systane Eye Drops) 1 drop EACH EYE PRN PRN Polyethylene Glycol (Miralax) 17 gm PO DAILY [facility] Last Admin: 08/05/17 08:32 Dose: 17 gm Fluticasone/Salmeterol (Advair Diskus) 1 each ORAL INH DAILY [facility] Last Admin: 08/05/17 09:55 Dose: 1 each Senna/Docusate Sodium (Senna Plus Tablet) 1 tab PO BID [facility] Last Admin: 08/05/17 08:29 Dose: 1 tab Sodium Phosphate (Fleet Enema) 1 enema [place] PRN PRN Last Admin: 08/05/17 11:41 Dose: 1 enema Tramadol HCl (Ultram) 50 mg PO QID PRN PRN Reason: Pain Last Admin: 08/04/17 21:17 Dose: 50 mg Current Medical Issues: Acute on chronic hypoxemic respiratory failure, diabetes mellitus type 2 on oral agents Comments: I certify that I personally led the interdisciplinary team meeting and agree with comments, barriers and goals indicated. Team meeting was held in the patient's room with the patient and the following family members present: patient's Mr. Danielle continues to have evidence of hypoxemia with exertion. He is on chronic oxygen at home but does not apparently use it all night nor on a regular basis. He has had difficulty with constipation likely related to pain medication etc. Had success this morning with an enema. His blood sugars have been monitored and are stable. - Dietary Patient's is counseled regarding consistent carbohydrate diet. - Physical Therapy Bed, Chair, Wheelchair Transfer Assist: Stand By Assist/Supervision Ambulation Ability: Stand By Assist/Supervision Ambulation Distance: 195 Wheelchair Propulsion Ability: Modified Independent Wheelchair Propulsion Distance: 184 Stair Climbing Ability: Stand By Assist/Supervision, 1 Person Assist Number of Steps Climbed: 12 Car Transfer Ability: Stand By Assist/Supervision, 1 Person Assist Comments: His exercise intolerance is significant. He has dyspnea with activity and needs frequent rest breaks. Continues to require at least 4 L of oxygen during activity. However even with that he continues to demonstrate decreased oxygen saturations after oxygen is increased to 4 L. He is progressing with therapy and recommendation is to continue another 2 days with home health at home. - Occupational Therapy Eating Ability: Independent Grooming Ability: Stand By Assist/Supervision Bathing Ability: Stand By Assist/Supervision Upper Body Dressing Ability: Stand By Assist/Supervision Lower Body Dressing Ability: Modified Independent Tub Transfer Assist: Patient Refuses Toileting Assist: Stand By Assist/Supervision Toilet Transfer Assist: Stand By Assist/Supervision, 1 Person Assist Comments: He is cooperative and progressing with occupational therapy goals. His hypoxemia is a barrier to treatment because of the need for oxygen tubing etc. In addition he requires frequent rest breaks. - Goals Physical Therapy Goals: 08/05/17 Goals: 1.) Mod I with amb and transfers Occupational Therapy Goals: OT goals 08/05/17. 1.) LB dressing w/ mod I. 2.) Toileting w/ mod I. - Barriers to Discharge Barriers to Attaining Goals: Endurance, Pain Control, Medical Limitation ( dyspnea and hypoxemia) - Care Plan Anticipated Length of Stay (days): 2 Anticipated DC Destination: Home, Self Care, Home Health Service I have led this team conference and agree with the plan.
--- NOTE | 2017-08-05 13:26 | Discharge Summary ---
Discharge Information Date of admission: 08/03/17 14:45 Anticipated date of discharge: 08/07/17 Attending Physician: Carl Rowley MD Primary care physician: Claudine Sandhu MD Consults: 08/03/17 14:55 Physician Consult [CONS] Routine Consulting Provider: Danny Carney Reason For Exam: medical management Ordering Provider has Notified Intellectual Property Lawyer: Yes 08/03/17 14:57 Physician Consult [CONS] Routine Consulting Provider: Benjamin Agarwal Reason For Exam: Metabolic Bone Disease Ordering Provider has Notified Intellectual Property Lawyer: No - Discharge Diagnosis (1) Status post-operative repair of closed fracture of left hip Status: Acute (2) Fracture of femoral neck, left Status: Acute (3) Diabetes mellitus type 2 in nonobese Status: Chronic (4) COPD (chronic obstructive pulmonary disease) Status: Chronic (5) Acute on chronic respiratory failure with hypoxemia Status: Acute (6) Slow transit constipation Status: Acute 1. Status post operative repair of left hip fracture, closed 2. Diabetes mellitus type 2, not on long-term insulin 3. Slow transit constipation 4. Acute on chronic respiratory failure with hypoxemia 5. Chronic obstructive pulmonary disease - Laboratory Labs: 08/04/17 04:26 08/04/17 04:26 History of Present Illness HPI: 08/05/17 13:23 Mr. Danielle is a pleasant 87-year-old white male. He was stepping out of his SUV on 07/30/2017. He missed the running board and fell resulting in a left hip fracture. He was admitted to [facility] on 07/31/2017 and the hip was repaired by Dr. Guthrie. The patient does have history of COPD and is on chronic oxygen therapy. Also has a history of diabetes mellitus on oral agents only. He was stabilized while on acute and was subsequently transferred to inpatient rehabilitation on 08/03/2017. 08/06/17 14:05 Hospital Course This is a general summary of the patient's hospital course. For more details refer to the complete medical record. The patient was admitted to acute inpatient rehabilitation on 08/03/2017 for a multidisciplinary approach to management of his rehabilitation. He had several medical issues that we followed including diabetes mellitus type 2, COPD with acute on chronic hypoxemic respiratory failure and pain management. He was continued on his Lovenox. Patient required supplemental oxygen with activity as well as occasionally at rest. He uses oxygen at home but not on a routine basis. For this reason, overnight oximetry was done as well as exercise oximetry. On the night of August 062016 overnight oximetry was performed. He required 2 L/m by nasal cannula to maintain saturations above 90%. On 08/06/2017 exercise oximetry was performed. He walked 150 feet. With exercise his lowest oxygen saturation recorded was 77%. I assume this was on room air. At one point with exercise he required 10 L/m to keep saturations above 90%. He was seen by Dr. Pennington and his retail assistant manager. They recommended 5 L/m by nasal cannula with exercise and 2 L per minute at rest and at night. They will also see him in follow-up with pulmonary function tests obtained. The patient was seen by rehabilitation nursing to monitor his blood sugars and to provide pain management. He was also seen by occupational therapy with the following improvements noted: He was able to eat with independent functioning at admission and dismissal. Grooming was with standby assistance initially and refused subsequently. Bathing ability was with minimum assistance initially and standby assistance subsequently. Upper body dressing with standby assistance on admission and dismissal. Lower body dressing was initially with minimum assistance at all currently with standby assistance. Toileting assistance was initially standby assistance and he refused assessment after that. Toilet transfer assistance was also contact-guard assistance initially and he refused assessment subsequently. Bed/chair/wheelchair transfers were performed with minimum assistance. He was seen by physical therapy with the following functional improvements identified: Bed/chair/wheelchair transfers were standby assistance upon admission and dismissal. Toilet assistance with standby assistance upon admission and dismissal. Toilet transfer assistance was with standby assistance upon admission and dismissal as well as car transfers. His ambulatory ability was initially with maximum assistance at 54 feet with a front-wheeled walker. Ultimately he could ambulate 152 feet with a front-wheeled walker. He was able to climb 12 steps with standby assistance. He is dismissed to his home with home health on 08/07/2017. His blood sugars are reasonably well controlled. Dietitian did visit with the patient and his and instructed them in a consistent carbohydrate diet. His constipation improved with the use of multiple agents including a fleets enema. Follow-up will be with Dr. Guthrie and Dr. Delia Ceja. Hospital course: 08/04/17 08:59 Assessment Closed, minimally displaced left subcapital femoral neck fracture s/p screw fixation 07/31/17 Mild ABLA COPD A-fib PVD History of TIA DM2, noninsulin dependent - well controlled (A1c 7.2%, 07/13/17) Prostate cancer history Plan Agree with PT/OT & pain mgt per attending. Pt had a brief period of confusion early this morning but was easily reoriented - monitor closely; do not perceive need for antipsychotics. Check KUB d/t abdominal distention, diarrhea, and high pitched hyperactive bowel sounds. If neg, reduce frequency of Senna Plus. Wean oxygen as able; he does use oxygen on a PRN basis at home. Continue DuoNeb treatments. Monitor blood glucose & continue metformin & glipizide. Mild decrease in hgb without need for transfusion. Hgb stable at 12.9. Recheck CBC in a couple days. Hx tachycardia and paroxysmal a-fib - digoxin was started on acute side; recheck dig level on 08/06/17. HR is in the 90s currently. Continue diltiazem. Lovenox x 30 days postop, through 09/03/17. Metabolic w/u pending; f/u with Dr. Agarwal. Thank you for this consultation; we will follow Mr. Danielle along with you during his IRU course. Upon discharge, care will be returned to Dr. Sandhu. Time spent with patient: 25 - 35 minutes Discharge Plan - Med Rec/Dispo Referrals/Follow Up: Michael Pennington MD [Physician] - (Dr. Alex Pennington on 08/18/2017 at 9:00 am for follow-up. [facility] [address] [place] [address] [place] [id number]) Claudine Sandhu MD [Family Provider] - (Dr. Daniel Ceja on 08/18/2017 at 4:30 pm for Hosp. follow-up. [phone] [facility] [address] [place] [address]) Lenard Guthrie MD [Physician] - (Dr. Chele Guthrie on 08/20/2017 at 1:00 pm for Post-Op follow-up. . Please bring Insurance Cards and a Photo ID to appointment. [facility] [address] [place] [address] [place] [id number]) Tye Instructions: Fall Prevention for Older Adults (GEN) Additional Instructions: Wear 2L O2 at rest and 5L O2 with activity. Prescriptions: New Cholecalciferol [Vit. D-3] 2,000 unit PO DAILY #30 tab Continue Albuterol HFA Inhaler [Ventolin Hfa 90 mcg/actuation] 2 inhaler PO PRN PRN PRN Reason: Dyspnea Vit A/C/E AC/Znox/Cupric Oxide [Eye Vitamin-Minerals Tablet] 1 tab PO DAILY Multivitamin [One Daily] 1 tab PO DAILY Advair 500-50Diskus 2 inhaler PO DAILY dilTIAZem HCl [Diltiazem 24Hr ER] 1 tab PO DAILY Metformin [Glucophage] 500 mg PO BIDWM Atorvastatin [Lipitor] 1 tab PO HS Aspirin *EC* [Ecotrin] 81 mg PO DAILY tab Senna + Docusate [Senna Plus Tablet] 1 tab PO BID tab Enoxaparin Sodium [Lovenox] 40 mg SQ DAILY #20 syringe Hydrocodone/APAP 5/325 [[place] 5/325] 1 tab PO Q4H PRN #40 tab PRN Reason: Pain Albuterol/Ipratropium [Duoneb] 1 unit AEROSOL Q4H PRN PRN Reason: Dyspnea GlipiZIDE [Glucotrol] 1 tab PO DAILY PEG 3350 17gm PACKET [Miralax] 17 gm PO DAILY packet Calcium 600 + D [Caltrate + D] 1 tab PO BID tab Discontinued Tramadol [Ultram] 50 mg PO QID PRN tab PRN Reason: Pain Digoxin [Lanoxin] 250 mcg PO DAILY tab No Action Insulin Aspart [NovoLOG] 2 - 8 unit SQ SS PRN vial PRN Reason: Hyperglycemia Acetaminophen [Tylenol] 500 mg PO Q5H PRN tab PRN Reason: Discomfort - Disposition [facility]
--- NOTE | 2017-08-05 13:28 | Letter to Referring Physician ---
Dear Doctor Delia Ceja, This is a brief note to bring you up-to-date on the status of Tino Danielle and his stay on the acute inpatient rehabilitation unit at [facility]. As you are likely aware, this patient was admitted to the acute care hospital on 07/31/17 for left hip fracture. He was taken to surgery by Dr. Guthrie on 07/31/2017 for repair of the left hip fracture. The patient was stabilized while on the acute level and admitted to inpatient rehabilitation unit at [facility] on August 03, 2017. While on inpatient rehabilitation, this patient was seen by occupational therapy and physical therapy and improved overall in their functional ability. We also monitored and managed the patient's diabetes and acute on chronic respiratory failure while on Acute Rehab. Please see a copy of the history and physical examination as well as discharge summary enclosed with this letter for further details. The patient underwent overnight oximetry on the night prior to dismissal with the following findings: 08/06-: Patient required 2 L/m by nasal cannula to keep saturations above 90%. He also underwent exercise oximetry on 08/06/2017 with the following findings: Lowest saturation recorded 77% on room air with exercise and 150 feet. At one point he required 10 L/m to keep his saturations above 90%. Dr. Pennington's editorial assistant recommended 5 L/m with activity, 2 L/m at rest and all night. Thank you for allowing us to be involved in this nice patient's care. Please contact me directly should you have any questions regarding their stay on the inpatient rehabilitation unit. Sincerely, Carl Rowley M.D.
--- NOTE | 2017-08-05 14:35 | IRU Plan of Care ---
[facility] Overall Plan of Care - Date Date: 08/05/17 - Patient Impairments (1) Status post-operative repair of closed fracture of left hip Code(s): Z98.890 - Other specified postprocedural states; Z87.81 - Personal history of (healed) traumatic fracture Status: Acute Classification: Present on IRF Admission, IRF Tx That Should Address Diagnosis, Diagnosis Requiring Medical Follow Up (2) Fracture of femoral neck, left Qualifiers: Encounter type: initial encounter Fracture type: closed Qualified Code(s) : S72.002A - Fracture of unspecified part of neck of left femur, initial encounter for closed fracture Code(s): S72.002A - Fracture of unspecified part of neck of left femur, initial encounter for closed fracture Status: Acute Classification: IRF Tx That Should Address Diagnosis, Diagnosis Requiring Medical Follow Up (3) Tachycardia Code(s): R00.0 - Tachycardia, unspecified Status: Acute Classification: IRF Tx That Should Address Diagnosis, Diagnosis Requiring Medical Follow Up (4) Diabetes mellitus type 2 in nonobese Code(s): E11.9 - Type 2 diabetes mellitus without complications Status: Chronic Classification: Present on IRF Admission, IRF Tx That Should Address Diagnosis, Diagnosis Requiring Medical Follow Up (5) 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 Qualified Code(s): J43.9 - Emphysema, unspecified Code(s): J44.9 - Chronic obstructive pulmonary disease, unspecified Status: Chronic Classification: Present on IRF Admission, IRF Tx That Should Address Diagnosis, Diagnosis Requiring Medical Follow Up (6) Acute on chronic respiratory failure with hypoxemia Code(s): J96.21 - Acute and chronic respiratory failure with hypoxia Status: Acute Classification: Present on IRF Admission, IRF Tx That Should Address Diagnosis, Diagnosis Requiring Medical Follow Up (7) Slow transit constipation Code(s): K59.01 - Slow transit constipation Status: Acute Classification: Present on IRF Admission, IRF Tx That Should Address Diagnosis - Relevant Changes Relevant Changes: No Reviewed: I have reviewed the patient's information and concur with the finding and results of the pre-admission screen. Certification: I certify the patient for rehabilitation. - Medical Prognosis Medical Prognosis: Good Vital Signs: Last Vital Signs Temp 97.4 F 08/05/17 08:29 Pulse 96 08/05/17 08:29 Resp 22 08/05/17 12:00 BP 152/73 H 08/05/17 08:29 Pulse Ox 99 08/05/17 12:00 - Anticipated Interventions Anticipated Interventions: The patient requires inpatient IRF care for PT, OT, and/or ST for residuals remaining from left hip fracture and repair resulting in muscular weakness and strength deficits. An individualized overall plan of care has been developed after careful review of the patient's preadmission screening, post admission physician evaluation and assessments of all therapy disciplines and/or other pertinent clinicians involved in treating the patient. This indicates medical necessity and rehabilitation necessity have been established through a thorough review of all available medical information. ROM Deficit: Left Lower Extremity Strength Deficits: Left Lower Extremity - Current Functional Status Failed Alternative Therapy: Arrived from Acute Care Patient Requires: The patient requires oversight by rehabilitation physician to manage their rehabilitation treatment plan and multidisciplinary approach to care that can only be provided in an IRF and requires a multidisciplinary approach to care, provided by professional PTs, OTs, rehabilitation nurses, and may require STs, dieticians, and RTS. This is not available in lesser levels of care. Physical Therapy Minutes: 90 Occupational Therapy Minutes: 90 Therapy: The patient is to receive therapy at least 5 days a week. - Anticipated LOS/Outcomes Anticipated Functional Outcome: Expected functional improvements include: -- Modified independant to independant ambulation with or without assistive device -- Modified independant to independant ADL's with or without assistive device -- Return to pre-morbid level of mobility -- Maximize level of mobility and ADL's to decrease burden on any caregiver involved with this patient's care Anticipated Length of Stay (days): 2 Anticipated DC Destination: Home, Self Care, Home Health Service Home Safety Plan: The patient will be provided with the development of a Home Safety Plan for return to a home or home-like environment and and to ensure safety post discharge. - Plan to Avoid Complications Barriers to Attaining Goals: Weakness, Endurance, Pain Control, Medical Limitation Plan to Avoid Complications: The patient cannot receive this care in a lesser intensive setting such as Senior Living or Outpatient Therapy due to the patient requiring the following : A multidisciplinary approach with medical supervision due to his severe acute on chronic hypoxemic respiratory failure along with monitoring of blood sugars and reduction in fall risk.
[2017-08-05] MEDS: ATORVASTATIN 40 MG TABLET PO SCH (20:49)
[2017-08-05] MEDS: INSULIN ASPART 100unit/ml INJECTION SQ PRN (20:49)
[2017-08-06] MEDS: HYDROCODONE/APAP 5mg/325mg TABLET PO PRN (05:38)
[2017-08-06] MEDS: ALBUTEROL/IPRATROPIUM 2.5mg-0.5mg/3ml NEB AEROSOL SCH ×4 (07:49→20:35)
--- NOTE | 2017-08-06 09:03 | XRay Report ---
Indication: f/u ileus PROCEDURE: XR KUB: Encounter: Initial Comparison: August 04, 2017 Findings: Interval improvement in the ileus pattern with decreasing small bowel dilatation, now measuring 4 cm in the right lower abdomen decreased from 5.9 cm previously. Continued large amount of stool throughout the colon. Lung bases are grossly clear. Bony structures are unchanged. Impression: Improved ileus. .
[2017-08-06] MEDS: MULTI-VITAMIN PLAIN TABLET PO SCH (09:16)
[2017-08-06] MEDS: MULTI-VIT + MINERAL (Opti-gen) TABLET PO SCH (09:16)
[2017-08-06] MEDS: DIGOXIN 125 MCG TABLET PO SCH (09:16)
[2017-08-06] MEDS: ENOXAPARIN 40 MG/0.4 ML INJECTION SQ SCH (09:17)
[2017-08-06] MEDS: GlipiZIDE 5 MG TABLET PO SCH (09:17)
[2017-08-06] MEDS: ASPIRIN *EC* 81 MG TABLET PO SCH (09:17)
[2017-08-06] MEDS: SENNA + DOCUSATE TABLET PO SCH ×2 (09:17→21:39)
[2017-08-06] MEDS: METFORMIN 500 MG TABLET PO SCH ×2 (09:17→17:45)
[2017-08-06] MEDS: CALCIUM 600 + VIT D 400 TABLET PO SCH ×2 (09:17→21:39)
[2017-08-06] MEDS: POLYETHYL GLYCOL 3350 17gm PACKET PO SCH (09:18)
[2017-08-06] MEDS ORDERED: FALL RISK - PHARMACY CONSULT XX ONE (09:37)
--- NOTE | 2017-08-06 10:08 | IRU Progress Note ---
- Subjective/Serverity of Illness Date: 08/06/17 Mr. Danielle states that he is doing well. He says he does have some dyspnea but this is chronic for him. He denies any cough or sputum. He denies any chest pain. According to therapy he still drops to 72% with exercise (walking) while using oxygen at 4 L/m. I discussed with the hospitalist service and we'll ask Dr. Pennington to see him. We are doing exercise oximetry officially today and overnight oximetry tonight. He does have a home concentrator but I get the impression he does not use it all the time. His appetite remains good. He did have good results from his enema the feels like there is more stool in there. KUB shows improved ileus but with presence of still a lot of stool in the colon. Brief therapy update: For occupational therapy he is standby assist for bathing. He refuses toilet assistance assessment. He transfers with minimum assistance. For physical therapy he is improving his exercise toleration in terms of distance. He is standby assistance to supervision with walking with a front-wheeled walker 152 feet. Nevertheless, he does display significant desaturation with activity. Update on medical issues we are actively managing or monitorin. Hypoxemia and history of COPD. please see above discussion. His lungs sound fairly clear with diminished breath sounds. 2. History of atrial fibrillation. He denies any palpitations, lightheadedness etc. He sounds as though he is in a regular rhythm at present. 3. Diabetes mellitus type II on oral agents only. Managed per hospitalist service. Blood sugars are running 160-200. No hypoglycemic episodes noted. 4. Slow transit constipation: I am sure this is exacerbated by his pain medication etc. Did have good results from the enema but still has stool present. He is on a variety of agents orally and does have Fleet Enema available as needed. Exam Vital Signs: Temperature 97.9 F 08/06/17 08:00 Pulse Rate 88 08/06/17 09:16 Respiratory Rate 16 08/06/17 08:00 Blood Pressure 124/59 08/06/17 08:00 Pulse Oximetry 91 08/06/17 08:00 Height/Weight/BMI: Height 1.8 m Weight 79.4 kg Body Mass Index 24.4 - Constitutional Present: well nourished, well developed, cooperative - Routine HEENT Exam Eye: Present: EOMI ENT: Present: mucous membranes moist, dentition normal - Routine Neck Exam Present: supple, full ROM - Routine Respiratory Exam Present: dyspnea, decreased breath sounds. Absent: respiratory distress, wheezes, crackles - Routine Cardiovascular Exam Present: RRR, S1, S2. Absent: murmur, S3, S4 - Routine Abdominal Exam Present: normoactive bowel sounds, distended. Absent: tenderness Comments: Heart exam is abdomen. I feel as though it may be slightly distended although not significantly so. He does have normal active bowel sounds. Abdomen is nontender. - Routine Extremities Exam Present: no edema - Routine Skin Exam Present: dry, warm - Routine Neurological Exam Present: alert, oriented X3, CN II-XII intact Results IRU - Labs Labs: Reviewed notes, vital signs and blood work. IRU A/P (1) Status post-operative repair of closed fracture of left hip Current visit: Yes Status: Acute Reports pain management is adequate at present. Anticipate going home tomorrow. He is doing well and has met most goals. (2) Fracture of femoral neck, left Qualifiers: Encounter type: initial encounter Fracture type: closed Qualified Code(s) : S72.002A - Fracture of unspecified part of neck of left femur, initial encounter for closed fracture Current visit: No Status: Acute (3) Tachycardia Current visit: Yes Status: Resolved No evidence of further tachycardia. (4) Diabetes mellitus type 2 in nonobese Current visit: Yes Status: Chronic Blood sugars running 160-200. Per hospitalist service. 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 We will ask Dr. Pennington to see him. Have discussed with the hospitalist service. Not certain how much of the current desaturation is acute versus chronic. According to the patient he runs in the 80s at home fairly frequently. Has been on Lovenox so we would not suspect pulmonary embolus. (7) Slow transit constipation Current visit: Yes Status: Acute KUB continues to demonstrate stool in the colon. Ileus has improved. DVT Prophylaxis: Lovenox Resuscitation Status: Full Code - Course Hospital Course: Carl Rowley MD: 08/04/17 10:25 he is cooperative and just getting started with therapy. Denies cough nor sputum. Hypoxemic with activity even on oxygen supplementation. Labs reviewed. 08/05/17 10:56 He is cooperative with therapy although reluctant to participate today due to constipation. Exercise related hypoxemia noted. Dyspnea and pulmonary status limits progress. He has poor exercise tolerance secondary to this. Constipation noted. We'll add fleets enema. 08/06/17 10:11 Patient doing well with therapy. Anticipate dismissal tomorrow. Continued evidence of exercise-induced desaturation. Last Dr. Taylor to see. KUB shows stool but improved ileus. - Interventions to Obtain Goals PT Treatment Plan: Balance/Proprioception, Functional Activities, Gait Training , Patient/Family Education, Therapeutic Exercise OT Treatment Plan: ADL (Basic Care), Balance Training, Pt./Family Education, Ther. Exercise for ADL Goals Progress/Modifications: Time spent with patient and on floor reviewing data and documentin min Barriers to dismissal: pain, endurance, hypoxia Medical decision-making: Patient continues to complain of a full abdomen as though he days to have a bowel movement. He is on a variety of oral agents as well as having Fleet Enema available for as needed use. May need another enema today. With regard to his pulmonary status, I feel as though he does have severe COPD with hypoxemia. We will asked Dr. Pennington to see. Possibility of pulmonary embolus is considered although he has been on Lovenox throughout. In addition, he reports hypoxemia at home and he does not use his oxygen necessarily with activity but just when he is sitting around the house. At a minimum he needs to use his oxygen more at home. Will also be to see by Dr. Pennington recommends.
--- NOTE | 2017-08-06 11:22 | Pulmonology Consult Note ---
<GorgeGaby Pedro - Last Filed: 08/06/17 11:19> History of Present Illness Consult date: 08/06/17 Reason for consult: hypoxemia Chief complaint: SOB with ambulation History of present illness: This is a 87 yo male with a Hx of COPD and hypoxia, uses O2 at 2L per NC at home. Currently in inpatient rehab s/p hip fracture repair. states he used to see Dr. Tapia years ago but hasn't seen anybody recently and his PCP has been managing his COPD. Uses Advair 500 BID and a/a QID at home with proair prn. PT stafff and nurses have noticed while hospitalized that he requires O2 up to 3-4L with ambulation and 2L at rest. We have been consulted for his hypoxia and appreciate the consult. Review of Systems - Constitutional Constitutional: Present: as per HPI - Cardiovascular Cardiovascular: Present: dyspnea on exertion - Respiratory Respiratory: Present: cough, dyspnea on exertion - Gastrointestinal Gastrointestinal: Present: as per HPI Additional comments: n/a - Musculoskeletal Additional comments: ambulating with walker 2/2 recent hip surgery - Integumentary/Breasts Integumentary: Present: as per HPI - Neurological Additional comments: [place] otherwise a/o x3 - Psychiatric Psychiatric: Present: as per HPI - Endocrine Endocrine: Present: as per HPI - Hematologic/Lymphatic Hematologic/Lymphatic: Present: as per HPI - Allergic/Immunologic Allergic/Immunologic: Present: as per HPI PFSH Patient Stated Medical History 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 ago TIA) Cataracts Yes: bilateral removed/has lens Hearing Loss Yes Macular Degeneration Yes: bilateral Cardiac Arrhythmia Yes: history of tachycardia-previously on med for this Chronic Obstructive Pulmonary Yes: SOB, 02 at home, RT to assess and give Disease (COPD) treatment Sleep Apnea No Diabetes Mellitus Type 2 Yes: avg bs at home 110, bs today 112 Constipation Yes Hx Benign Prostatic Yes Hyperplasia Hx Incontinence No Other Yes: prostate cancer/biopsies Other Musculoskeletal Yes: TIA 5 yrs ago, right sided weakness, left carotid endardectomy Medical History Updates: He reports history of prostate biopsy and is unclear if this demonstrated cancer. At one he stated it did but other information in the chart indicates that it was a benign biopsy. He states that he was reassessed every 3 months for a while but no treatment was given. Has seen Dr. Jim for this in the past. Surgical History: EGD in 1989. Echo 2009: EF 71%, trace tricuspid regurgitation. Nuclear stress test 2009: EF 65%, negative for [place]. CEA 09/2013, Dr. Atkinson. Prostate biopsy 2001 (benign). Hernia repair x 2 (umbilical and left inguinal), 1998. Left hip screw fixation 07/31/17, Dr. Guthrie - Social History Smoking status: Former smoker Household members: spouse Current residence: Apartment/Private Home Medications Home Medications Medication Instructions Recorded Confirmed Type Advair 500-50Diskus 2 inhaler PO DAILY 07/31/17 07/31/17 History Albuterol HFA Inhaler [Ventolin 2 inhaler PO PRN PRN 07/31/17 07/31/17 History Hfa 90 mcg/actuation] Albuterol/Ipratropium [Duoneb] 1 unit AEROSOL Q4H PRN 07/31/17 07/31/17 History Atorvastatin [Lipitor] 1 tab PO HS 07/31/17 07/31/17 History GlipiZIDE [Glucotrol] 1 tab PO DAILY 07/31/17 07/31/17 History Metformin [Glucophage] 500 mg PO BIDWM 07/31/17 07/31/17 History Multivitamin [One Daily] 1 tab PO DAILY 07/31/17 07/31/17 History Vit A/C/E AC/Znox/Cupric Oxide 1 tab PO DAILY 07/31/17 07/31/17 History [Eye Vitamin-Minerals Tablet] dilTIAZem HCl [Diltiazem 24Hr ER] 1 tab PO DAILY 07/31/17 07/31/17 History Allergies Allergy/AdvReac Type Severity Reaction Status Date / Time No Known Drug Allergies Allergy Verified 08/03/17 15:03 Exam Vital signs: Temperature 97.9 F 08/06/17 08:00 Pulse Rate 88 08/06/17 09:16 Respiratory Rate 16 08/06/17 08:00 Blood Pressure 124/59 08/06/17 08:00 Pulse Oximetry 91 08/06/17 08:00 - Constitutional no acute distress, well nourished - Routine HEENT Exam Head: Present: normocephalic, atraumatic Eye: Present: EOMI, PERRL ENT: Present: mucous membranes moist - Routine Neck Exam Present: supple, full ROM - Routine Respiratory Exam Present: decreased breath sounds, crackles - Routine Cardiovascular Exam Present: RRR, S1, S2, no murmur - Routine Abdominal Exam Present: soft, normoactive bowel sounds - Routine Extremities Exam Present: no edema, non tender, full ROM - Routine Back/Spine/Pelvis Exam Back/Spine: Present: full ROM - Routine Skin Exam Present: intact, dry - Routine Neurological Exam Present: alert, oriented X3, CN II-XII intact - Routine Psychiatric Exam Present: normal affect, normal thought process Results - Laboratory Findings CBC and BMP: 08/06/17 04:51 08/06/17 04:51 Abnormal lab findings: Abnormal Labs 08/04/17 08/04/17 08/06/17 04:26 04:26 04:51 RBC 4.12 L 4.02 L Hgb 12.9 L 12.5 L Hct 40.8 L 40.0 L [place] % (Auto) 13.3 H 13.2 H Eos % (Auto) 5.8 H 4.5 H [place] # (Auto) 0.9 H 0.9 H Carbon Dioxide BUN 26.0 H Creatinine BUN/Creatinine Ratio 33 H Glucose 114 H Calculated Osmolality 281 H 08/06/17 04:51 RBC Hgb Hct [place] % (Auto) Eos % (Auto) [place] # (Auto) Carbon Dioxide 33 H BUN Creatinine 0.7 L BUN/Creatinine Ratio 27 H Glucose Calculated Osmolality Assessment and Plan - Assessment and Plan Acute on chronic hypoxia COPD Hip Fx s/p repair Plan: Pt currently on O2 at 2L per NC, requiring more with ambulation, possibly secondary to just his COPD but crackles noted on exam. Will check CXR today, exercise oximetry and MARTY ordered per primary. On advair 500 BID and A/A QID, good regimen for his COPD, could do spiriva daily op and needs PFT OP. Would recommend follow up as an OP. - Time Spent With Patient Total time spent is greater than 50% in coordination of care (as documented) at patient's floor/unit and/or counseling patient: less than 15 minutes <Michael Pennington - Last Filed: 08/06/17 17:58> COUNT INCLUDES THE [facility] Patient Stated Medical History 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 ago TIA) Cataracts Yes: bilateral removed/has lens Hearing Loss Yes Macular Degeneration Yes: bilateral Cardiac Arrhythmia Yes: history of tachycardia-previously on med for this Chronic Obstructive Pulmonary Yes: SOB, 02 at home, RT to assess and give Disease (COPD) treatment Sleep Apnea No Diabetes Mellitus Type 2 Yes: avg bs at home 110, bs today 112 Constipation Yes Hx Benign Prostatic Yes Hyperplasia Hx Incontinence No Other Yes: prostate cancer/biopsies Other Musculoskeletal Yes: TIA 5 yrs ago, right sided weakness, left carotid endardectomy Exam Vital signs: Temperature 97.9 F 08/06/17 08:00 Pulse Rate 81 08/06/17 17:37 Respiratory Rate 18 08/06/17 17:37 Blood Pressure 137/62 08/06/17 17:37 Pulse Oximetry 91 08/06/17 17:37 Results - Laboratory Findings CBC and BMP: 08/06/17 04:51 08/06/17 04:51 Abnormal lab findings: Abnormal Labs 08/04/17 08/04/17 08/06/17 04:26 04:26 04:51 RBC 4.12 L 4.02 L Hgb 12.9 L 12.5 L Hct 40.8 L 40.0 L [place] % (Auto) 13.3 H 13.2 H Eos % (Auto) 5.8 H 4.5 H [place] # (Auto) 0.9 H 0.9 H Carbon Dioxide BUN 26.0 H Creatinine BUN/Creatinine Ratio 33 H Glucose 114 H Calculated Osmolality 281 H 08/06/17 04:51 RBC Hgb Hct [place] % (Auto) Eos % (Auto) [place] # (Auto) Carbon Dioxide 33 H BUN Creatinine 0.7 L BUN/Creatinine Ratio 27 H Glucose Calculated Osmolality Assessment and Plan (1) COPD (chronic obstructive pulmonary disease) Status: Chronic Assessment and plan: Unknown severity. Is O2 dependent. Recommend Advair discus BID, neb albuterol/ipratropium QID and prn. CXR is improved, resolution of RLL opacities. We will follow and recommend OP PFT and pulm followup. Current Visit: Yes (2) Acute on chronic respiratory failure with hypoxemia Status: Acute Assessment and plan: Requires supplemental O2 to maintain O2 sat >90%. Exercise oximetry to maintain sat >90% with ambulation. Current Visit: Yes - Time Spent With Patient Total time spent is greater than 50% in coordination of care (as documented) at patient's floor/unit and/or counseling patient:
[2017-08-06] MEDS: BISACODYL 10 MG SUPPOSITORY RECTALLY SCH ×4 (11:40→21:39)
--- NOTE | 2017-08-06 15:05 | XRay Report ---
INDICATION: hypoxia PROCEDURE: CHEST 2-VIEWS UPRIGHT (PA & LAT) Encounter: Initial Comparison: August 02, 2017 Findings: Improved aeration of the right lower lobe. Persistently elevated left hemidiaphragm. Senescent changes and basilar scarring. No new airspace disease. No pleural effusion or pneumothorax. Heart size and mediastinal contours are stable. Pulmonary vascularity is normal. Impression: Clearance of the prior right lower lobe airspace disease. No acute cardiopulmonary disease. .
[2017-08-06] MEDS: FLEET PHOSPHO - SODA ENEMA 133ml PR PRN (18:54)
[2017-08-06] MEDS: ATORVASTATIN 40 MG TABLET PO SCH (21:39)
[2017-08-07] MEDS: ALBUTEROL/IPRATROPIUM 2.5mg-0.5mg/3ml NEB AEROSOL SCH ×3 (08:40→15:44)
[2017-08-07] MEDS: METFORMIN 500 MG TABLET PO SCH (08:45)
[2017-08-07] MEDS: MULTI-VIT + MINERAL (Opti-gen) TABLET PO SCH (08:45)
[2017-08-07] MEDS: ASPIRIN *EC* 81 MG TABLET PO SCH (08:45)
[2017-08-07] MEDS: GlipiZIDE 5 MG TABLET PO SCH (08:45)
[2017-08-07] MEDS: DIGOXIN 125 MCG TABLET PO SCH (08:46)
[2017-08-07] MEDS: CALCIUM 600 + VIT D 400 TABLET PO SCH (08:46)
[2017-08-07] MEDS: POLYETHYL GLYCOL 3350 17gm PACKET PO SCH (08:47)
[2017-08-07] MEDS: SENNA + DOCUSATE TABLET PO SCH (08:47)
[2017-08-07] MEDS: MULTI-VITAMIN PLAIN TABLET PO SCH (08:47)
[2017-08-07 09:31] VITALS: PULSE 92; O2SAT 94
[2017-08-07] MEDS: BISACODYL 10 MG SUPPOSITORY RECTALLY SCH (09:52)
--- NOTE | 2017-08-07 10:57 | Pulmonology Progress Note ---
Subjective Principal diagnosis: hip fx, hypoxia Interval history: Pt up to chair, states his breathing is doing good. No SOB and minimal cough noted. Wanting to go home. Exam Vital signs: Temperature 98 F 08/06/17 19:25 Pulse Rate 92 08/07/17 09:28 Respiratory Rate 18 08/06/17 20:35 Blood Pressure 148/69 H 08/06/17 19:25 Pulse Oximetry 94 08/07/17 09:28 - Constitutional no acute distress, average body habitus - Routine HEENT Exam Head: Present: normocephalic, atraumatic Eye: Present: EOMI, PERRL - Routine Neck Exam Present: supple, full ROM - Routine Respiratory Exam Present: decreased breath sounds - Routine Cardiovascular Exam Present: RRR, S1, S2, no murmur - Routine Abdominal Exam Present: soft, normoactive bowel sounds - Routine Extremities Exam Present: non tender, full ROM - Routine Back/Spine/Pelvis Exam Back/Spine: Present: full ROM - Routine Skin Exam Present: intact, dry - Routine Neurological Exam Present: alert, oriented X3, CN II-XII intact - Routine Psychiatric Exam Present: normal affect, normal thought process Assessment and Plan - Assessment and Plan Acute on chronic hypoxia COPD Hip Fx s/p repair Plan: Pt currently on O2 at 2L per NC, requiring more with ambulation. Ex Ox shows he needs 5L with ambulation, 2 at rest and at noc. CXR yesterday with improving basilar atelectasis. On advair 500 BID and A/A QID, good regimen for his COPD, could do spiriva daily op and needs PFT OP. Would recommend follow up as an OP. - Time Spent With Patient Total time spent is greater than 50% in coordination of care (as documented) at patient's floor/unit and/or counseling patient: less than 15 minutes
[2017-08-07 11:43] VITALS: RESP 12
[2017-08-07 12:40] VITALS: BP 129/62; TEMP 97.6
[2017-08-07] MEDS: ENOXAPARIN 40 MG/0.4 ML INJECTION SQ SCH (13:29)
== END 2017-08-07 13:50 | disposition home health service (06) | DRG 559 ==
PROVIDERS: ADMIT Internal Medicine; ATTEND Internal Medicine